=== PATIENT | female | born 1990 | race Caucasian/White ===

== ENCOUNTER 2018-11-18 11:31 | Emergency (ER) | payer OTHER ==
[~2018-11-18] VITALS: Ht 172.7 cm; Wt 91.2 kg
[~2018-11-18 11:31] MED LIST: ALBU90OI INH; ALBU90OI6 INH; ALBU90OI61 INH; AMOX500 PO; ANTOXYBENA OT; ATOM40; Ativan1 MG PO; BCP; CEPH500 PO; CETI10 PO; CETI5 PO; CYCL10 PO; CYMBALTA; Crutch1 EACH MISC; Cyclobenzaprine5 MG PO; DIPH50; DIPH50 PO; DIVA250EC; DOXY100 PO; ESTNORT; FLOURIDE; GUAI600T33 PO; HYDACE5 PO; HYDGUAL120 PO; HYDPAM25; IBUP400 PO; IBUP600 PO; IBUP800 PO; LORA.5 PO; LORA10ER PO; MECL25 PO; METF500 PO; METR500 PO; MONT10T; MULTIVITS; MULVITB&C PO; NAPR250 PO; NAPR500; NAPR500 PO; NEOPOLHYDS OT; NUVA RING; Norco 5-325 Ta1 EACH PO; Nuvaring Vagin1 EACH VG; ONDA4ODT MM; ONDA8ODT MM; OTC ALLERGY MEDS; PENVK500 PO; PRED10 PO; PRED20 PO; PROM25 PO; Prednisone20 MG PO; QUET25; RXCODGUASY PO; RXCYCL10 PO; RXHYDACE PO; RXPROM25 PO; SERT25; SULI150 PO; SUMA25 PO; TRAM50 PO; TRAZ100; TRAZ50; Zofran Odt4 MG SL; [UNRECOGNIZED DRUG - OTHER]; [UNRECOGNIZED DRUG - OTHER]; [UNRECOGNIZED DRUG - REMARK]
[2018-11-18 12:27] LABS: BASOPHILS ABSOLUTE AUTO 0.06 K/mm3 (0.00-0.23); BASOPHILS PERCENT AUTO 0 % (0-2); EOSINOPHILS ABSOLUTE AUTO 0.32 K/mm3 (0.00-0.68); EOSINOPHILS PERCENT AUTO 2 % (0-6); Hemoglobin 14.2 g/dL (11.5-16.0); IMMATURE GRAN ABSOLUTE AUTO 0.06 K/mm3 (0.00-0.10); IMMATURE GRAN PERCENT AUTO 0 % (0-1); LYMPHOCYTES ABSOLUTE AUTO 2.88 K/mm3 (0.84-5.20); LYMPHOCYTES PERCENT AUTO 20 % (21-46); MONOCYTES ABSOLUTE AUTO 0.63 K/mm3 (0.16-1.47); MONOCYTES PERCENT AUTO 4 % (4-13); Mean Corpuscular HGB 30.9 pg (26.0-34.0); Mean Corpuscular HGB Conc 33.8 g/dL (31.5-36.5); Mean Corpuscular Volume 92 fL (80-100); Mean Platelet Volume 9.4 fL (9.1-12.4); NEUTROPHILS ABSOLUTE AUTO 10.69 K/mm3 (1.96-9.15); NEUTROPHILS PERCENT AUTO 73 % (41-73); Platelet Count 337 K/mm3 (150-400); RDW Standard Deviation 40.3 fL (35.1-46.3); Red Blood Cell Count 4.59 M/mm3 (3.80-5.20); White Blood Cell Count 14.64 K/mm3 (4.00-11.30)
[2018-11-18 12:54] LABS: Alanine Aminotransfer (ALT/SGP 25 U/L (12-78); Albumin, Blood 4.3 g/dL (3.4-5.0); Albumin/Globulin Ratio 1.1 (0.8-1.8); Alk Phos 109 U/L (50-136); Anion Gap 6 mmol/L (6-16); Aspartate Aminotrans (AST/SGOT 27 U/L (12-37); Bilirubin, Total 0.4 mg/dL (0.1-1.0); Blood Urea Nitrogen 10 mg/dL (8-24); Bun/Creatinine Ratio 12.1 (12.0-20.0); CO2, Blood 25 mmol/L (21-32); Calcium, Blood 8.4 mg/dL (8.5-10.1); Chloride, Blood 107 mmol/L (98-108); Creatinine, Blood 0.82 mg/dL (0.40-1.00); Globulin, Blood 3.8 g/dL (2.2-4.0); Glomerular Filtration Rate >60 (60-); Glucose, Blood 70 mg/dL (70-99); Sodium, Blood 138 mmol/L (136-145); Total Protein, Blood 8.1 g/dL (6.4-8.2)
[2018-11-18] MEDS ORDERED: CEPH500 PO (14:55)
== END 2018-11-18 14:59 | disposition home or self-care (01) ==
LOC: ER 11:31
PROVIDERS: Physician Assistant
DX: L01.00 Impetigo, unspecified (principal); J45.909 Unspecified asthma, uncomplicated; F90.9 Attention-deficit hyperactivity disorder, unspecified type; F43.10 Post-traumatic stress disorder, unspecified; G43.909 Migraine, unspecified, not intractable, without status migrainosus; Z79.899 Other long term (current) drug therapy
CPT/HCPCS: 36415; 80053; 85025; 99283

== ENCOUNTER 2018-12-31 23:03 | Emergency (ER) | payer OTHER ==
[~2018-12-31] VITALS: Ht 167.6 cm; Wt 86.2 kg
[2018-12-31] MEDS ORDERED: FLUT1DIS2 INH (23:14)
[2018-12-31] MEDS ORDERED: DIVA250EC PO (23:15)
[2018-12-31] MEDS ORDERED: HYDHCL25 PO (23:15)
[2018-12-31] MEDS ORDERED: VENL150ER PO (23:15)
[2018-12-31] MEDS ORDERED: NAPR500 PO (23:16)
[2018-12-31] MEDS ORDERED: BACL10 PO (23:16)
[2018-12-31] MEDS ORDERED: AMIT50 PO (23:16)
[2018-12-31] MEDS ORDERED: Augmentin 875-1 EACH PO (23:56)
== END 2019-01-01 00:05 | disposition home or self-care (01) ==
LOC: ER 23:03
DX: S61.452A Open bite of left hand, initial encounter (principal); S61.451A Open bite of right hand, initial encounter; S61.552A Open bite of left wrist, initial encounter; S61.551A Open bite of right wrist, initial encounter; J45.909 Unspecified asthma, uncomplicated; F43.10 Post-traumatic stress disorder, unspecified; F90.9 Attention-deficit hyperactivity disorder, unspecified type; G43.909 Migraine, unspecified, not intractable, without status migrainosus; W55.01XA Bitten by cat, initial encounter
CPT/HCPCS: 90376; 90471; 90714; 99283-25

== ENCOUNTER 2019-04-01 22:21 | Inpatient (IN) | payer OTHER ==
[~2019-04-01] VITALS: Ht 172.7 cm; Wt 87.1 kg
[~2019-04-01 22:21] MED LIST changes: +AMIT50 PO; +Augmentin 875-1 EACH PO; +BACL10 PO; +DIVA250EC PO; +FLUT1DIS2 INH; +HYDHCL25 PO; +VENL150ER PO
[2019-04-01] MEDS ORDERED: CYCL10 PO (22:33)
[2019-04-01] MEDS ORDERED: ALLEGRA ALLERG180 MG PO (22:33)
[2019-04-01 23:42] LABS: BASOPHILS ABSOLUTE AUTO 0.06 K/mm3 (0.00-0.23); BASOPHILS PERCENT AUTO 1 % (0-2); EOSINOPHILS ABSOLUTE AUTO 0.79 K/mm3 (0.00-0.68); EOSINOPHILS PERCENT AUTO 7 % (0-6); Hematocrit 39.4 % (33.0-51.0); Hemoglobin 13.1 g/dL (11.5-16.0); IMMATURE GRAN ABSOLUTE AUTO 0.03 K/mm3 (0.00-0.10); IMMATURE GRAN PERCENT AUTO 0 % (0-1); LYMPHOCYTES ABSOLUTE AUTO 1.77 K/mm3 (0.84-5.20); LYMPHOCYTES PERCENT AUTO 16 % (21-46); MONOCYTES ABSOLUTE AUTO 0.43 K/mm3 (0.16-1.47); MONOCYTES PERCENT AUTO 4 % (4-13); Mean Corpuscular HGB 31.3 pg (26.0-34.0); Mean Corpuscular HGB Conc 33.2 g/dL (31.5-36.5); Mean Corpuscular Volume 94 fL (80-100); Mean Platelet Volume 9.4 fL (9.1-12.4); NEUTROPHILS ABSOLUTE AUTO 8.01 K/mm3 (1.96-9.15); NEUTROPHILS PERCENT AUTO 72 % (41-73); Platelet Count 266 K/mm3 (150-400); RDW Coefficient Variation 12.1 % (11.7-14.2); RDW Standard Deviation 41.9 fL (35.1-46.3); Red Blood Cell Count 4.19 M/mm3 (3.80-5.20); White Blood Cell Count 11.09 K/mm3 (4.00-11.30)
[2019-04-02 00:01] LABS: Anion Gap 7 mmol/L (6-16); Blood Urea Nitrogen 10 mg/dL (8-24); Bun/Creatinine Ratio 9.9 (12.0-20.0); CO2, Blood 25 mmol/L (21-32); Calcium, Blood 8.6 mg/dL (8.5-10.1); Chloride, Blood 108 mmol/L (98-108); Creatinine, Blood 1.01 mg/dL (0.40-1.00); Glomerular Filtration Rate >60 (60-); Glucose, Blood 125 mg/dL (70-99); Potassium, Blood 3.4 mmol/L (3.5-5.5); Sodium, Blood 140 mmol/L (136-145)
--- NOTE | 2019-04-02 04:37 | NUR ---
SHIFT SUMMARY PT ARRIVED FROM ED IN NO DISTRES. PT ON O2 2 CHANGE CONTROL MANAGER VIA NC. PT DENIES ANY SOB OR PAIN. PT CURRENTLY AWAKE TRYING TO SLEEP. NO ISSUES NOTED. CALL LIGHT IN REACH.
[2019-04-02 05:07] LABS: Hematocrit 42.5 % (33.0-51.0); Mean Corpuscular HGB 30.5 pg (26.0-34.0); Mean Corpuscular HGB Conc 32.9 g/dL (31.5-36.5); Mean Corpuscular Volume 93 fL (80-100); Mean Platelet Volume 9.5 fL (9.1-12.4); Platelet Count 298 K/mm3 (150-400); RDW Coefficient Variation 12.1 % (11.7-14.2); RDW Standard Deviation 41.5 fL (35.1-46.3); Red Blood Cell Count 4.59 M/mm3 (3.80-5.20); White Blood Cell Count 10.31 K/mm3 (4.00-11.30)
[2019-04-02 05:28] LABS: Alanine Aminotransfer (ALT/SGP 21 U/L (12-78); Albumin, Blood 4.1 g/dL (3.4-5.0); Albumin/Globulin Ratio 1.1 (0.8-1.8); Alk Phos 85 U/L (50-136); Anion Gap 8 mmol/L (6-16); Aspartate Aminotrans (AST/SGOT 22 U/L (12-37); Bilirubin, Total 0.4 mg/dL (0.1-1.0); Blood Urea Nitrogen 11 mg/dL (8-24); Bun/Creatinine Ratio 13.9 (12.0-20.0); CO2, Blood 25 mmol/L (21-32); Chloride, Blood 108 mmol/L (98-108); Creatinine, Blood 0.79 mg/dL (0.40-1.00); Globulin, Blood 3.8 g/dL (2.2-4.0); Glomerular Filtration Rate >60 (60-); Glucose, Blood 186 mg/dL (70-99); Potassium, Blood 3.9 mmol/L (3.5-5.5); Sodium, Blood 141 mmol/L (136-145); Total Protein, Blood 7.9 g/dL (6.4-8.2)
[2019-04-02 05:49] LABS: Adenovirus Not Detected (NOT DETECT)
[2019-04-02 05:50] LABS: Bordetella pertussis Not Detected (NOT DETECT); Chlamydophila pneumoniae Not Detected (NOT DETECT); Coronavirus 229E Not Detected (NOT DETECT); Coronavirus HKU1 Not Detected (NOT DETECT); Coronavirus NL63 Not Detected (NOT DETECT); Coronavirus OC43 Not Detected (NOT DETECT); Human Metapneumovirus Not Detected (NOT DETECT); Human Rhinovirus/Enterovirus Detected (NOT DETECT); Influenza A Not Detected (NOT DETECT); Influenza A/2009-H1 Not Detected (NOT DETECT); Influenza A/H1 Not Detected (NOT DETECT); Influenza A/H3 Not Detected (NOT DETECT); Influenza B Not Detected (NOT DETECT); Mycoplasma pneumoniae Not Detected (NOT DETECT); Parainfluenza Virus 1 Not Detected (NOT DETECT); Parainfluenza Virus 2 Not Detected (NOT DETECT); Parainfluenza Virus 3 Not Detected (NOT DETECT); Parainfluenza Virus 4 Not Detected (NOT DETECT); Respiratory Syncytial Virus Not Detected (NOT DETECT)
--- NOTE | 2019-04-02 18:37 | NUR ---
SHIFT SUMMARY PATIENT STATES SHE FEELS MUCH BETTER THIS AFTERNOON. TOLERATING UP TO BR AND TAKING MEAL WITH LESS SOB AT THIS TIME. OUT IN WC W/FRIENDS A FEW TIMES THIS SHIFT- PATIENT STATES 'THE COOL AIR MAKES IT EASIER TO BREATHE.' BIOX 100% ON 2L O2 PER NC WHILE SHE IS AWAITING A NEB TX. 93-94% ON RA. NO ACUTE CHANGES.
--- NOTE | 2019-04-03 04:49 | NUR ---
SHIFT SUMMARY PT HAD NO ISSUES NOTED. PT HAS GONE OUTSIDE FOR A WALK WITH FRIENDS. PT DENIES INCREASE IN SOB. PT HAS SLEPT OFF AND T/O SHIFT. PT CURRENTLY SLEEPING IN NO DISTRESS. CALL LIGHT IN REACH.
--- NOTE | 2019-04-03 12:31 | NUR ---
ADVISED PATIENT HAD SOME WATERY STOOL EARLIER AND STS SHE ATE SOMETHING YESTERDAY THAT DID NOT AGREE WITH HER. HAVE NOT SEEN SAMPLE AND DID PLACE HAT IN TOILET FOR NEXT TIME. WONERING ABOUT PROBIOTICS? STS WILL LOOK AND ORDER.
--- NOTE | 2019-04-03 15:58 | NUR ---
ALERT. ORIENTED. UNLABORED RESPIRATIONS, BUT INSPIRATORY WHEEZES. AMBULATORY WITH STEADY GAIT. INDEPENDENT. TELE ON AND HAS BEEN SR TO LOW ST. HEART RATE RISES AFTER TREATMENT AND WHEN COUGHING. DENIES PAIN. BED IN LOW POSITON. ABLE TO MAKE NEEDS KNOWN. WCTM.
--- NOTE | 2019-04-04 04:55 | NUR ---
SHIFT SUMMARY PT HAD NO ISSUES NOTED. PT DENIES ANY INCREASED SOB. PT HAD SOME ANXIETY AND WAS TX PER EMAR. PT CURRENTLY AWAKE AND BREATHING EASY. CALL LIGHT IN REACH.
[2019-04-04] MEDS ORDERED: CYCL10 PO (11:08)
[2019-04-04] MEDS ORDERED: ROBITUSSIN COU237 ML PO (11:11)
[2019-04-04] MEDS ORDERED: Florastor250 MG PO (11:11)
[2019-04-04] MEDS ORDERED: Prednisone10 MG PO (11:12)
--- NOTE | 2019-04-04 13:21 | NUR ---
1224 PT DISCHARGED HOME VIA PERSONAL VEHICLE ACCOMPANIED AND DRIVEN BY . PT TAKING TO ENTRANCE VIA W/C BY . IV REMOVED. NEW RX FAXED TO [facility] PER PT REQUEST. D/C INSTRUCTIONS REVIEWED WITH PT AND COPY PROVIDED. PT WITH VERY MILD EXPIRATORY WHEEZES THIS AM, ON RA. PT SHOWERED PRIOR TO D/C. NO NEW CHANGES OR CONCERNS.
== END 2019-04-04 12:24 | disposition home or self-care (01) | DRG 189 ==
LOC: ER 22:21 → MEDS 04-02 00:34
PROVIDERS: Emergency Medicine; ADMIT Internal Medicine
DX: J96.01 Acute respiratory failure with hypoxia (principal); N17.9 Acute kidney failure, unspecified; J45.41 Moderate persistent asthma with (acute) exacerbation; E87.6 Hypokalemia; E86.0 Dehydration
CPT/HCPCS: 0099U; 36415; 71046; 80048; 80053; 85025; 85027; 87070; 87205; 94640; 94644; 94667; 94760; 99285-25; J1650; J2920; J2930; J3475

== ENCOUNTER 2019-12-03 21:46 | Observation (INO) | payer OTHER ==
[~2019-12-03] VITALS: Ht 172.7 cm; Wt 64.5 kg
[~2019-12-03 21:46] MED LIST changes: +ALLEGRA ALLERG180 MG PO; +Florastor250 MG PO; +ONDA4ODT SL; +Prednisone10 MG PO; +ROBITUSSIN COU237 ML PO
[2019-12-03 22:25] LABS: BASOPHILS ABSOLUTE AUTO 0.04 K/mm3 (0.00-0.23); BASOPHILS PERCENT AUTO 0 % (0-2); EOSINOPHILS ABSOLUTE AUTO 0.01 K/mm3 (0.00-0.68); EOSINOPHILS PERCENT AUTO 0 % (0-6); Hematocrit 44.5 % (33.0-51.0); IMMATURE GRAN ABSOLUTE AUTO 0.04 K/mm3 (0.00-0.10); IMMATURE GRAN PERCENT AUTO 0 % (0-1); LYMPHOCYTES ABSOLUTE AUTO 2.25 K/mm3 (0.84-5.20); LYMPHOCYTES PERCENT AUTO 16 % (21-46); MONOCYTES PERCENT AUTO 4 % (4-13); Mean Corpuscular HGB 30.4 pg (26.0-34.0); Mean Corpuscular HGB Conc 33.7 g/dL (31.5-36.5); Mean Corpuscular Volume 90 fL (80-100); NEUTROPHILS ABSOLUTE AUTO 10.81 K/mm3 (1.96-9.15); NEUTROPHILS PERCENT AUTO 79 % (41-73); Platelet Count 324 K/mm3 (150-400); RDW Coefficient Variation 12.1 % (11.7-14.2); RDW Standard Deviation 40.1 fL (35.1-46.3); Red Blood Cell Count 4.94 M/mm3 (3.80-5.20); White Blood Cell Count 13.75 K/mm3 (4.00-11.30)
[2019-12-03 22:51] LABS: Alanine Aminotransfer (ALT/SGP 30 U/L (12-78); Albumin, Blood 4.4 g/dL (3.4-5.0); Albumin/Globulin Ratio 1.5 (0.8-1.8); Alk Phos 53 U/L (50-136); Anion Gap 11 mmol/L (6-16); Aspartate Aminotrans (AST/SGOT 19 U/L (12-37); Bilirubin, Total 1.3 mg/dL (0.1-1.0); Blood Urea Nitrogen 13 mg/dL (8-24); Bun/Creatinine Ratio 12.5 (12.0-20.0); CO2, Blood 26 mmol/L (21-32); Calcium, Blood 9.2 mg/dL (8.5-10.1); Chloride, Blood 103 mmol/L (98-108); Creatinine, Blood 1.04 mg/dL (0.40-1.00); Globulin, Blood 2.9 g/dL (2.2-4.0); Glomerular Filtration Rate >60 (60-); Glucose, Blood 93 mg/dL (70-99); Potassium, Blood 3.4 mmol/L (3.5-5.5); Sodium, Blood 140 mmol/L (136-145); Total Protein, Blood 7.3 g/dL (6.4-8.2)
[2019-12-03 23:20] LABS: Source, Urine Clean Catch
[2019-12-03 23:22] LABS: Bilirubin, Urine Neg (Neg); Blood, Urine 2+ (Neg); Glucose Qualitative, Urine Neg (Neg); Ketones, Urine 4+ (Neg); Leukocyte Esterase, Urine 2+ (Neg); Nitrite, Urine Neg (Neg); Protein, Urine 1+ (Neg); Specific Gravity, Urine 1.015 (1.003-1.022); Urobilinogen, Urine NORM (Normal)
[2019-12-03 23:24] LABS: Appearance, Urine Hazy (Clear); Color, Urine Yellow (P-Yellow)
[2019-12-03 23:28] LABS: Amorphous Mod (0-Heavy); Bacteria Mod /hpf; Red Blood Cells, Urine 0-2 /hpf (0-2); Squamous Epithelial Cells Few /hpf (Few)
[2019-12-04] MEDS ORDERED: MIRENA1 EACH (01:45)
--- NOTE | 2019-12-04 02:00 | NUR ---
PT ARRIVED TO ROOM FROM ER. PT A/O, CALM/COOPERATIVE; VSS. PT DENIES PAIN AT REST, REP PAIN W/PALP TO R ABD, DECLINES NEED FOR PAIN MEDS. PT REP MILD NAUSEA, REP IMPROVED AFTER MED GIVEN IN ER. BT AVTIVE, PT REP PASSIGN FLATUS, LAST BM 10 DAYS AGO. PT ORIENTED TO ROOM/CALL LIGHT. PT REQ TO SHOWER TO HELP RELIEVE ANXIETY, AGREEABLE TO WAIT UNTIL ABX COMPLETED.
--- NOTE | 2019-12-04 06:22 | NUR ---
PT NEW ADMIT THIS SHIFT FOR ACUTE TWIN. PT AWOKE W/PAIN AND NAUSEA THIS AM, MEDICATED PER EMAR. PT NPO SINCE ARRIVING TO FLOOR, PENDING OR TODAY. IVF CONT PER ORDERS. PT ANXIOUS AT TIMES, SUPPORT PRN. PT USING CALL LIGHT FOR ASSISTANCE, WILL CONT TO MONITOR UNTIL REP GIVEN TO ONCOMING RN.
--- NOTE | 2019-12-04 16:50 | NUR ---
POST OP S/P LAP TWIN. PATIENT A/O. PT REPORTS TOLERABLE PAIN AT 3/10. X4 LAP SITES TO ABD WITH SCANT SEROSANGUINOUS DRAINAGE. PT SLOWLY TOLERATING CLEAR LIQUIDS. IVF INFUSING PER ORDERS. POST OP VS STABLE W/MILD HTN. PATIENT WITH ANXIETY PREOP BUT APPEARS TO BE CALM POST OP. SUPPORT PRN. PATIENT USES CALL LIGHT APPROPRIATELY.
--- NOTE | 2019-12-04 17:00 | NUR ---
AGREE WITH HEAVY THREADER DOCUMENTATION.
--- NOTE | 2019-12-05 00:33 | NUR ---
ASSUMED CARE OF PT; REPORT REC FROM YURIDIA JAUREGUI. PT VSS, MEDICATED FOR PAIN W/TORADOL. INCISIONS CDI, APPX DIME SIZED FIRM/RAISED AREA NOTED AT UPPER INCISION. PT REP TENDERNESS W/PALP. PT AMB IN ROOM W/FWW, SCD'S PLACED, CALL LIGHT IN REACH, PT DENIES ADDITIONAL NEEDS AT THIS TIME. WILL CONT TO MONITOR AND TX PER ORDERS.
--- NOTE | 2019-12-05 05:23 | NUR ---
BP: BP ELEVATED THIS AM. PT DENIES CP/PRESSURE/SOB. REP HAVING PAIN/NAUSEA. PT DECLIINING PRN BP MED AT THIS TIME, REQ TO HAVE NAUSEA MED FOLLOWED BY PAIN MEDS THEN REASSESS BP AFTER MEDS GIVEN.
--- NOTE | 2019-12-05 06:45 | NUR ---
POD 1 S/P LAP TWIN. PT BP ELEVATED THIS AM, PRN HYDRALAZINE GIVEN PER EMAR. INCISIONS CDI, NO CHANGE IN SWELLING OF UPPER ABD SITE. PT KARLO FL PO, REP PASSING FLATUS. PT DID AWAKE W/NAUSEA THIS AM, MEDICATED W/ZOFRAN W/REP RELIEF. PT ANXIOUS AT TIMES, SUPPORT PRN. PT INDEP IN ROOM, IS CALLING FOR ASSISTANCE. WILL CONT TO MONITOR UNTIL REP GIVEN TO ONCOMING RN.
[2019-12-05] MEDS ORDERED: KEFLEX500 MG PO (16:57)
[2019-12-05] MEDS ORDERED: HYDR1TAB94 PO (16:58)
--- NOTE | 2019-12-05 17:24 | NUR ---
SUMMARY PT WITH SLIGHT NAUSEA, TAKING SMALL AMOUNTS OF REGULAR DIET. PAIN CONTROLLED WITH PO MEDS PT AMBULATING INDEPENDENTLY IN ROOM AND HALLWAYS
--- NOTE | 2019-12-05 22:24 | NUR ---
DISCHARGE NOTE PT DC'D HOME AT 2230. UPON INITIAL NURSING ASSESSMENT PT REPORTED SHE WAS FEELING MUCH BETTER, NO NAUSEA OR PAIN, TOLERATING PO INTAKE AND PASSING GAS. PT SAID SHE WANTED TO GO HOME IF POSSIBLE THIS WAS DISCUSSED EARLIER IN THE DAY. DR. BARRAZA CALLED AND CONFIRMED THAT PT WAS OKAY TO DC THIS EVENING. DC INSTRUCTIONS REVIEWED WITH PT. PT REPORTS UNDERSTANDING. SCRIPTS FOR NORCO AND KEFLEX SENT WITH PT. PT REPORTS SHE WILL FILL/POLICEMAN FIRST THING IN THE MORNING. IV DC'D WNL. PERSONAL BELONGINGS SENT WITH PT. PT REPORTS NO QUESTIONS OR CONCERNS. PT ARRANGED RIDE WITH FRIEND AND WAS ESCORTED TO VEHICLE BY INTRUSION ANALYST IN WHEELCHAIR.
== END 2019-12-05 23:00 | disposition home or self-care (01) ==
LOC: ER 21:46 → SURS 21:47
PROVIDERS: Emergency Medicine; ADMIT Surgery
PROC: 0FT44ZZ Resection of Gallbladder, Percutaneous Endoscopic Approach (ICD-10-PCS; principal; 2019-12-03)
DX: K81.1 Chronic cholecystitis (principal); F17.210 Nicotine dependence, cigarettes, uncomplicated; J45.909 Unspecified asthma, uncomplicated
CPT/HCPCS: 36415; 76705; 80053; 81001; 81025; 83690; 85025; 87077; 87086; 87186; 88304; 96361; 96365; 96366; 96375; 96376; 99285-25; A9270-GY; G0378; J0295; J0360; J0780; J1100; J1200; J1885; J2250; J2405; J2704; J2710; J3010; J7030; J7120

== ENCOUNTER 2019-12-11 15:40 | Observation (INO) | payer OTHER ==
[~2019-12-11] VITALS: Ht 172.7 cm; Wt 64.0 kg
[~2019-12-11 15:40] MED LIST changes: +HYDR1TAB94 PO; +KEFLEX500 MG PO; +MIRENA1 EACH
[2019-12-11 16:35] LABS: BASOPHILS ABSOLUTE AUTO 0.05 K/mm3 (0.00-0.23); BASOPHILS PERCENT AUTO 0 % (0-2); EOSINOPHILS ABSOLUTE AUTO 0.11 K/mm3 (0.00-0.68); EOSINOPHILS PERCENT AUTO 1 % (0-6); Hematocrit 44.6 % (33.0-51.0); Hemoglobin 14.8 g/dL (11.5-16.0); IMMATURE GRAN ABSOLUTE AUTO 0.03 K/mm3 (0.00-0.10); IMMATURE GRAN PERCENT AUTO 0 % (0-1); LYMPHOCYTES PERCENT AUTO 18 % (21-46); MONOCYTES ABSOLUTE AUTO 0.48 K/mm3 (0.16-1.47); MONOCYTES PERCENT AUTO 4 % (4-13); Mean Corpuscular HGB 29.8 pg (26.0-34.0); Mean Corpuscular HGB Conc 33.2 g/dL (31.5-36.5); Mean Corpuscular Volume 90 fL (80-100); Mean Platelet Volume 9.8 fL (9.1-12.4); NEUTROPHILS ABSOLUTE AUTO 8.62 K/mm3 (1.96-9.15); NEUTROPHILS PERCENT AUTO 76 % (41-73); Platelet Count 286 K/mm3 (150-400); RDW Standard Deviation 39.5 fL (35.1-46.3); Red Blood Cell Count 4.96 M/mm3 (3.80-5.20); White Blood Cell Count 11.29 K/mm3 (4.00-11.30)
[2019-12-11 16:51] LABS: Alanine Aminotransfer (ALT/SGP 181 U/L (12-78); Albumin, Blood 4.2 g/dL (3.4-5.0); Albumin/Globulin Ratio 1.4 (0.8-1.8); Alk Phos 56 U/L (50-136); Anion Gap 11 mmol/L (6-16); Aspartate Aminotrans (AST/SGOT 100 U/L (12-37); Bilirubin, Total 1.4 mg/dL (0.1-1.0); Blood Urea Nitrogen 12 mg/dL (8-24); Bun/Creatinine Ratio 13.6 (12.0-20.0); CO2, Blood 24 mmol/L (21-32); Calcium, Blood 9.6 mg/dL (8.5-10.1); Chloride, Blood 103 mmol/L (98-108); Creatinine, Blood 0.88 mg/dL (0.40-1.00); Glomerular Filtration Rate >60 (60-); Glucose, Blood 82 mg/dL (70-99); Potassium, Blood 3.4 mmol/L (3.5-5.5); Sodium, Blood 138 mmol/L (136-145); Total Protein, Blood 7.2 g/dL (6.4-8.2)
[2019-12-11] MEDS ORDERED: ONDA4 PO (16:56)
[2019-12-11] MEDS ORDERED: [UNRECOGNIZED DRUG - OTHER] PO (16:57)
[2019-12-11] MEDS ORDERED: PROM25 PO (18:19)
[2019-12-11] MEDS ORDERED: Daily Multiple1 EACH PO (21:17)
[2019-12-11] MEDS ORDERED: OXYC5 PO (22:29)
[2019-12-11] MEDS ORDERED: ONDA4 (22:30)
--- NOTE | 2019-12-12 07:48 | NUR ---
SUMMARY ADMITTED TO SURGICAL SERVICES S/P RECENT LAP TWIN. WILL BE SEEN BY SURGERY TODAY. ORIENTED PT TO ROOM AND CALL LIGHT SYSTEM. MED X1 IV FOR PAIN WITH VERB GOOD EFFECT.PT SLEEPING THIS AM.
[2019-12-12 08:09] LABS: BASOPHILS ABSOLUTE AUTO 0.08 K/mm3 (0.00-0.23); BASOPHILS PERCENT AUTO 1 % (0-2); EOSINOPHILS PERCENT AUTO 5 % (0-6); Hemoglobin 12.9 g/dL (11.5-16.0); IMMATURE GRAN ABSOLUTE AUTO 0.02 K/mm3 (0.00-0.10); IMMATURE GRAN PERCENT AUTO 0 % (0-1); LYMPHOCYTES ABSOLUTE AUTO 3.04 K/mm3 (0.84-5.20); LYMPHOCYTES PERCENT AUTO 33 % (21-46); MONOCYTES ABSOLUTE AUTO 0.46 K/mm3 (0.16-1.47); MONOCYTES PERCENT AUTO 5 % (4-13); Mean Corpuscular HGB 30.7 pg (26.0-34.0); Mean Corpuscular HGB Conc 33.1 g/dL (31.5-36.5); Mean Platelet Volume 9.7 fL (9.1-12.4); NEUTROPHILS ABSOLUTE AUTO 5.22 K/mm3 (1.96-9.15); NEUTROPHILS PERCENT AUTO 56 % (41-73); Platelet Count 232 K/mm3 (150-400); RDW Coefficient Variation 12.2 % (11.7-14.2); RDW Standard Deviation 41.8 fL (35.1-46.3); White Blood Cell Count 9.32 K/mm3 (4.00-11.30)
[2019-12-12 08:10] LABS: Mean Corpuscular Volume 93 fL (80-100)
[2019-12-12 08:27] LABS: Alanine Aminotransfer (ALT/SGP 165 U/L (12-78); Albumin, Blood 3.3 g/dL (3.4-5.0); Albumin/Globulin Ratio 1.3 (0.8-1.8); Alk Phos 45 U/L (50-136); Anion Gap 10 mmol/L (6-16); Aspartate Aminotrans (AST/SGOT 92 U/L (12-37); Bilirubin, Total 1.2 mg/dL (0.1-1.0); Blood Urea Nitrogen 10 mg/dL (8-24); Bun/Creatinine Ratio 11.6 (12.0-20.0); CO2, Blood 23 mmol/L (21-32); Calcium, Blood 8.3 mg/dL (8.5-10.1); Chloride, Blood 109 mmol/L (98-108); Creatinine, Blood 0.87 mg/dL (0.40-1.00); Globulin, Blood 2.6 g/dL (2.2-4.0); Glomerular Filtration Rate >60 (60-); Glucose, Blood 80 mg/dL (70-99); Potassium, Blood 3.8 mmol/L (3.5-5.5); Sodium, Blood 142 mmol/L (136-145); Total Protein, Blood 5.9 g/dL (6.4-8.2)
--- NOTE | 2019-12-12 13:29 | NUR ---
PT TAKEN TO IMAGING DEPARTMENT FOR HIDA SCAN.
--- NOTE | 2019-12-12 17:16 | NUR ---
ELEVATED BP 162/109, DR. LOMBARDI NOTIFIED. PLAN TO CONTINUE TO MONITOR BP AT THIS TIME. PT ALSO COMPLAINED OF ACID REFLUX, WILL START PROTONIX PER DR. LOMBARDI.
--- NOTE | 2019-12-12 18:04 | NUR ---
PT IS HERE FOR OBSERVATION AFTER INJURY FROM LIFTING HER DOG AFTER A RECENT LAP JOSE 8 DAYS AGO. TODAY THE HEPATOBILIARY SCAN REVEALED NO BILE LEAK OR OBSTRUCTION. PT C/O PAIN AT RIGHT ABDOMEN, STATED "HURTS WHEN I BREATHE IN." LIVER ENZYMES ARE ELEVATED. PAIN IS CONTROLLED WITH 25 MCH FENTANYL, NAUSEA IS CONTROLLED WITH PHENERGAN. PT PREFERS QUIET WITH DOOR CLOSED.
--- NOTE | 2019-12-12 18:11 | NUR ---
SHIFT SUMMARY PT WAS RE-ADMITTED AFTER A LAP TWIN SURGERY ON 11/29/2019. PT HAS HAD RUQ PAIN ACCOMPANIED BY NAUSEA T/O THE DAY. SHE HAS BEEN ABLE TO KEEP DOWN SMALL AMOUNTS OF CLEAR LIQUIDS. PT HAD A HIDA SCAN TODAY WHICH SHOWED NO BILE LEAK. PT IS INDEPENDENT IN HER ROOM. PLAN FOR CT SCAN TOMORROW. WILL CONTINUE TO MONITOR.
[2019-12-13 04:02] LABS: BASOPHILS ABSOLUTE AUTO 0.04 K/mm3 (0.00-0.23); BASOPHILS PERCENT AUTO 0 % (0-2); EOSINOPHILS ABSOLUTE AUTO 0.49 K/mm3 (0.00-0.68); EOSINOPHILS PERCENT AUTO 5 % (0-6); Hematocrit 37.7 % (33.0-51.0); Hemoglobin 12.8 g/dL (11.5-16.0); IMMATURE GRAN ABSOLUTE AUTO 0.01 K/mm3 (0.00-0.10); IMMATURE GRAN PERCENT AUTO 0 % (0-1); LYMPHOCYTES PERCENT AUTO 39 % (21-46); MONOCYTES ABSOLUTE AUTO 0.55 K/mm3 (0.16-1.47); MONOCYTES PERCENT AUTO 6 % (4-13); Mean Corpuscular HGB 30.4 pg (26.0-34.0); NEUTROPHILS ABSOLUTE AUTO 4.98 K/mm3 (1.96-9.15); NEUTROPHILS PERCENT AUTO 50 % (41-73); RDW Coefficient Variation 11.9 % (11.7-14.2); Red Blood Cell Count 4.21 M/mm3 (3.80-5.20); White Blood Cell Count 9.97 K/mm3 (4.00-11.30)
[2019-12-13 04:21] LABS: Alanine Aminotransfer (ALT/SGP 141 U/L (12-78); Albumin/Globulin Ratio 1.1 (0.8-1.8); Alk Phos 43 U/L (50-136); Anion Gap 9 mmol/L (6-16); Aspartate Aminotrans (AST/SGOT 73 U/L (12-37); Bilirubin, Total 1.2 mg/dL (0.1-1.0); Blood Urea Nitrogen 5 mg/dL (8-24); CO2, Blood 22 mmol/L (21-32); Chloride, Blood 110 mmol/L (98-108); Creatinine, Blood 0.83 mg/dL (0.40-1.00); Globulin, Blood 2.7 g/dL (2.2-4.0); Glomerular Filtration Rate >60 (60-); Glucose, Blood 79 mg/dL (70-99); Potassium, Blood 3.6 mmol/L (3.5-5.5); Sodium, Blood 141 mmol/L (136-145); Total Protein, Blood 5.7 g/dL (6.4-8.2)
[2019-12-13 04:29] LABS: Mean Corpuscular Volume 90 fL (80-100); Mean Platelet Volume 9.8 fL (9.1-12.4); Platelet Count 119 K/mm3 (150-400)
--- NOTE | 2019-12-13 05:43 | NUR ---
SHIFT SUMMARY LYING IN SEMI FOWLERS WITH EYES OPEN WHILE WATCHING TV AND DRINKING CONTRAST FOR CT DUE AT 0600. PAIN MEDS GIVEN X1 THIS SHIFT, TOLERATED WELL. DRESSINGS TO ABD C/D/I. DENIES FURTHER NEEDS OR WANTS AT THIS TIME. SAFETY MEASURES IN PLACE. WILL CONTINUE TO MONITOR AND GIVE HAND OFF TO ONCOMING SHIFT USING SBAR DURING BEDSIDE REPORT.
--- NOTE | 2019-12-13 06:49 | NUR ---
AFTER RETURNING FROM CT, NURSING WAS INFORMED THAT PT'S PIV WAS LEAKING. OLD PIV REMOVED FROM LEFT AC WITH CATH TIP INTACT, PT TOLERATED WELL. 20G PIV PLACED TO LEFT WRIST X2 ATTEPTS, FLUSHED WITH EASE BEFORE IVF RESTARTED. DENEIS FURTHER NEEDS OR WANTS AT THIS TIME. SAFETY MEASURES IN PLACE. WILL CONTINUE TO MONITOR.
--- NOTE | 2019-12-13 15:31 | NUR ---
Per admit trigger, I met with Abe to offer education regarding ACP. She was very interested in completing an Advanced Directive with her spouse post-discharge. I advised I would remain available to assist.
--- NOTE | 2019-12-13 18:04 | NUR ---
SHIFT SUMMARY ADVANCED DIET TO GLUTEN FREE. PT CONTINUED WITH PAIN BUT TOLERATABLE. SALINE LOCK DUE TO TOLERATING OF DIET.
--- NOTE | 2019-12-14 04:11 | NUR ---
SHIFT SUMMARY PT A/OX4 WITH VSS. C/O INTERMITTENT RUQ PAIN, REPORTS RELIEF FROM REPOSITIONING AND IV FENTANYL. MEDICATED 2X FOR PAIN DURING SHIFT. REPORTS ANXIETY AT TOLERABLE LEVEL. KARLO GLUTEN FREE DIET. IND IN ROOM. IS CURRENTLY RESTING IN BED WITH CALL LIGHT IN REACH. WILL CONT TO MONITOR AND GIVE REPORT TO ONCOMING RN.
--- NOTE | 2019-12-14 17:11 | NUR ---
SHIFT SUMMARY PT TOLERATING PAIN MED CHANGE WELL. TOLERATING DIET AND NO REPORTS OF NAUSEA NOR VOMITING. EATING, DRINKING AND VOIDING WELL. PASSING GAS BUT NO BM REPORTED. PT IS EXCITED TO GO HOME TOMORROW. BLOOD PRESSURE IMPROVING WITH ORDERS.
--- NOTE | 2019-12-15 05:53 | NUR ---
SHIFT SUMMARY NO ACUTE CHANGES. PT APPEARS TO HAVE RESTED WELL. REPORTS PAIN MANAGED WITH PO MEDICATION. APPEARS TO HAVE SLEPT WELL T/O OUT SHIFT. KARLO GLUTEN FREE DIET. IND IN ROOM. REPORTS VOIDING WITHOUT COMPLICATION. WILL CONT TO MONITOR AND GIVE REPORTS TO ONCOMING RN.
[2019-12-15] MEDS ORDERED: Prinivil10 MG PO (12:39)
[2019-12-15] MEDS ORDERED: TRAZ100 PO (12:41)
--- NOTE | 2019-12-15 14:17 | NUR ---
discharge Pt d/c'd. feels comfortable with DC. tolerating diet, ambulating, passing gas.
== END 2019-12-15 14:10 | disposition home or self-care (01) ==
LOC: ER 15:40 → SURS 15:41
PROVIDERS: Student in an Organized Health Care Education/Training Program; ADMIT Surgery
DX: G89.18 Other acute postprocedural pain (principal); R10.9 Unspecified abdominal pain; I10 Essential (primary) hypertension; F32.9 Major depressive disorder, single episode, unspecified; F41.9 Anxiety disorder, unspecified; Z88.1 Allergy status to other antibiotic agents; Z88.2 Allergy status to sulfonamides; Z90.49 Acquired absence of other specified parts of digestive tract
CPT/HCPCS: 36415; 74177; 78226; 80053; 82947; 83690; 83880; 84484; 85025; 93005; 93010; 96361-59; 96374-59; 96375-59; 99285-25; A9270-GY; A9537; J2270; J2405; J2543; J2550; J3010; J7030; Q9967

== ENCOUNTER 2021-02-06 16:02 | Emergency (ER) | payer OTHER ==
[~2021-02-06] VITALS: Ht 172.7 cm; Wt 62.1 kg
[~2021-02-06 16:02] MED LIST changes: +Daily Multiple1 EACH PO; +ONDA4; +ONDA4 PO; +OXYC5 PO; +Prinivil10 MG PO; +TRAZ100 PO; +[UNRECOGNIZED DRUG - OTHER] PO
[2021-02-06] MEDS ORDERED: CEPH500 PO (18:14)
== END 2021-02-06 18:30 | disposition home or self-care (01) ==
LOC: ER 16:02
DX: M27.2 Inflammatory conditions of jaws (principal); Z88.2 Allergy status to sulfonamides; Z88.1 Allergy status to other antibiotic agents; Z91.09 Other allergy status, other than to drugs and biological substances; Z91.02 Food additives allergy status; Z91.012 Allergy to eggs; Z88.8 Allergy status to other drugs, medicaments and biological substances; Z79.899 Other long term (current) drug therapy
CPT/HCPCS: 99282; A9270

== ENCOUNTER 2021-12-24 13:40 | Emergency (ER) | payer OTHER ==
[~2021-12-24] VITALS: Ht 172.7 cm; Wt 64.4 kg
== END 2021-12-24 14:45 | disposition home or self-care (01) ==
LOC: ER 13:40
DX: N93.9 Abnormal uterine and vaginal bleeding, unspecified (principal); Z88.2 Allergy status to sulfonamides; Z91.09 Other allergy status, other than to drugs and biological substances; Z91.012 Allergy to eggs; Z79.899 Other long term (current) drug therapy
CPT/HCPCS: 99283

== ENCOUNTER → 2022-02-09 | Outpatient (CLI) | payer OTHER ==
[2022-02-09 13:38] LABS: BASOPHILS ABSOLUTE AUTO 0.05 K/mm3 (0.00-0.23); BASOPHILS PERCENT AUTO 1 % (0-2); EOSINOPHILS ABSOLUTE AUTO 0.15 K/mm3 (0.00-0.68); EOSINOPHILS PERCENT AUTO 2 % (0-6); Hematocrit 40.7 % (33.0-51.0); IMMATURE GRAN ABSOLUTE AUTO 0.02 K/mm3 (0.00-0.10); IMMATURE GRAN PERCENT AUTO 0 % (0-1); LYMPHOCYTES ABSOLUTE AUTO 3.25 K/mm3 (0.84-5.20); LYMPHOCYTES PERCENT AUTO 36 % (21-46); MONOCYTES ABSOLUTE AUTO 0.41 K/mm3 (0.16-1.47); MONOCYTES PERCENT AUTO 5 % (4-13); Mean Corpuscular HGB 30.9 pg (26.0-34.0); Mean Corpuscular HGB Conc 34.4 g/dL (31.5-36.5); Mean Corpuscular Volume 90 fL (80-100); NEUTROPHILS ABSOLUTE AUTO 5.19 K/mm3 (1.96-9.15); NEUTROPHILS PERCENT AUTO 57 % (41-73); Platelet Count 280 K/mm3 (150-400); RDW Standard Deviation 43.2 fL (35.1-46.3); Red Blood Cell Count 4.53 M/mm3 (3.80-5.20); White Blood Cell Count 9.07 K/mm3 (4.00-11.30)
[2022-02-09 13:58] LABS: Albumin, Blood 3.8 g/dL (3.4-5.0); Albumin/Globulin Ratio 1.2 (0.8-1.8); Bilirubin, Total 0.4 mg/dL (0.1-1.0); Bun/Creatinine Ratio 18.4 (12.0-20.0); Calcium, Blood 8.3 mg/dL (8.5-10.1); Creatinine, Blood 0.87 mg/dL (0.40-1.00); Globulin, Blood 3.1 g/dL (2.2-4.0); Potassium, Blood 4.4 mmol/L (3.5-5.5); Thyroid Stimulating Hormone 1.661 uIU/mL (0.360-4.800); Total Protein, Blood 6.9 g/dL (6.4-8.2)
== END ==
LOC: LAB SHORT 13:34
PROVIDERS: Physician Assistant
DX: R53.83 Other fatigue (principal)
CPT/HCPCS: 80053; 84443; 85025

== ENCOUNTER 2024-01-13 20:19 | Emergency (ER) | payer OTHER ==
[~2024-01-13] VITALS: Ht 172.7 cm; Wt 63.5 kg
[2024-01-13 20:33] VITALS: BP 126/89
== END 2024-01-13 22:23 | disposition home or self-care (01) ==
LOC: ER 20:19
DX: S01.511A Laceration without foreign body of lip, initial encounter (principal); J45.909 Unspecified asthma, uncomplicated; F43.10 Post-traumatic stress disorder, unspecified; W49.04XA Ring or other jewelry causing external constriction, initial encounter; Z79.899 Other long term (current) drug therapy; Z88.2 Allergy status to sulfonamides; Z88.1 Allergy status to other antibiotic agents; Z91.018 Allergy to other foods; Z91.012 Allergy to eggs; Z91.048 Other nonmedicinal substance allergy status
CPT/HCPCS: 12011; 99282-25

== ENCOUNTER 2024-01-26 10:46 | Emergency (ER) | payer OTHER ==
[~2024-01-26] VITALS: Ht 172.7 cm; Wt 62.6 kg
[2024-01-26 11:13] VITALS: BP 124/80
[2024-01-26] MEDS ORDERED: Ondansetron HCl 2 MG / ML 2ML Vial IV ONE ×2 (11:15→12:50)
[2024-01-26] MEDS ORDERED: NS 1,000 ML IV SCH (11:15)
[2024-01-26 11:33] LABS: BASOPHILS ABSOLUTE AUTO 0.05 K/mm3 (0.00-0.23); BASOPHILS PERCENT AUTO 0 % (0-2); EOSINOPHILS PERCENT AUTO 0 % (0-6); Hematocrit 38.6 % (33.0-51.0); Hemoglobin 13.5 g/dL (11.5-16.0); IMMATURE GRAN ABSOLUTE AUTO 0.04 K/mm3 (0.00-0.10); IMMATURE GRAN PERCENT AUTO 0 % (0-1); LYMPHOCYTES ABSOLUTE AUTO 1.37 K/mm3 (0.84-5.20); LYMPHOCYTES PERCENT AUTO 8 % (21-46); MONOCYTES ABSOLUTE AUTO 0.77 K/mm3 (0.16-1.47); MONOCYTES PERCENT AUTO 5 % (4-13); Mean Corpuscular HGB 31.2 pg (26.0-34.0); Mean Corpuscular Volume 89 fL (80-100); Mean Platelet Volume 9.7 fL (9.1-12.4); NEUTROPHILS ABSOLUTE AUTO 14.72 K/mm3 (1.96-9.15); NEUTROPHILS PERCENT AUTO 87 % (41-73); Platelet Count 274 K/mm3 (150-400); RDW Coefficient Variation 12.1 % (11.7-14.2); Red Blood Cell Count 4.33 M/mm3 (3.80-5.20); White Blood Cell Count 16.95 K/mm3 (4.00-11.30)
[2024-01-26 11:52] LABS: Albumin, Blood 4.2 g/dL (3.4-5.0); Albumin/Globulin Ratio 1.3 (0.8-1.8); Bilirubin, Total 0.6 mg/dL (0.1-1.0); Bun/Creatinine Ratio 11.6 (12.0-20.0); Calcium, Blood 9.2 mg/dL (8.5-10.1); Creatinine, Blood 0.78 mg/dL (0.40-1.00); Globulin, Blood 3.2 g/dL (2.2-4.0); Potassium, Blood 3.3 mmol/L (3.5-5.5); Total Protein, Blood 7.4 g/dL (6.4-8.2)
[2024-01-26] MEDS ORDERED: PROMETHAZINE12.5 M1 PO (13:15)
[2024-01-26] MEDS ORDERED: Promethazine HCl 25 MG Tab PO ONE (13:15)
== END 2024-01-26 13:48 | disposition home or self-care (01) ==
LOC: ER 10:46
PROVIDERS: Physician Assistant
DX: A08.4 Viral intestinal infection, unspecified (principal); Z79.899 Other long term (current) drug therapy; Z88.2 Allergy status to sulfonamides; Z88.8 Allergy status to other drugs, medicaments and biological substances; Z91.09 Other allergy status, other than to drugs and biological substances; Z91.012 Allergy to eggs; Z87.891 Personal history of nicotine dependence
CPT/HCPCS: 80053; 81025; 83690; 85025; 96374; 99283-25; A9270; J2405; J7030

== ENCOUNTER 2024-08-06 18:02 | Emergency (ER) | payer OTHER ==
[~2024-08-06] VITALS: Ht 172.7 cm; Wt 64.4 kg
[~2024-08-06 18:02] MED LIST changes: +PROMETHAZINE12.5 M1 PO
[2024-08-06 18:57] VITALS: BP 145/103
[2024-08-06] MEDS ORDERED: Ondansetron HCl 2 MG / ML 2ML Vial IV PRN (19:00)
[2024-08-06 19:38] LABS: Source, Urine Clean Catch
[2024-08-06 19:42] LABS: BASOPHILS ABSOLUTE AUTO 0.07 K/mm3 (0.00-0.23); BASOPHILS PERCENT AUTO 0 % (0-2); EOSINOPHILS ABSOLUTE AUTO 0.03 K/mm3 (0.00-0.68); EOSINOPHILS PERCENT AUTO 0 % (0-6); Hematocrit 44.8 % (33.0-51.0); Hemoglobin 15.9 g/dL (11.5-16.0); IMMATURE GRAN ABSOLUTE AUTO 0.06 K/mm3 (0.00-0.10); IMMATURE GRAN PERCENT AUTO 0 % (0-1); LYMPHOCYTES ABSOLUTE AUTO 3.56 K/mm3 (0.84-5.20); LYMPHOCYTES PERCENT AUTO 19 % (21-46); MONOCYTES PERCENT AUTO 4 % (4-13); Mean Corpuscular HGB 31.5 pg (26.0-34.0); Mean Corpuscular HGB Conc 35.5 g/dL (31.5-36.5); Mean Corpuscular Volume 89 fL (80-100); Mean Platelet Volume 9.1 fL (9.1-12.4); NEUTROPHILS ABSOLUTE AUTO 13.94 K/mm3 (1.96-9.15); NEUTROPHILS PERCENT AUTO 76 % (41-73); Platelet Count 428 K/mm3 (150-400); RDW Coefficient Variation 12.6 % (11.7-14.2); RDW Standard Deviation 40.8 fL (35.1-46.3); Red Blood Cell Count 5.04 M/mm3 (3.80-5.20); White Blood Cell Count 18.36 K/mm3 (4.00-11.30)
[2024-08-06 19:54] LABS: Appearance, Urine Cloudy (Clear); Bilirubin, Urine Neg (Neg); Blood, Urine 3+ (Neg); Color, Urine Yellow (P-Yellow); Glucose Qualitative, Urine Neg (Neg); Ketones, Urine 2+ (Neg); Leukocyte Esterase, Urine 3+ (Neg); Nitrite, Urine Pos (Neg); Protein, Urine 2+ (Neg); Specific Gravity, Urine 1.025 (1.003-1.022); Urobilinogen, Urine 1+ (Normal)
[2024-08-06 20:02] LABS: Bacteria Many /hpf; Calcium Oxalate Crystals Few /hpf; Squamous Epithelial Cells Mod /hpf (Few); White Blood Cells, Urine 25-50 /hpf (0-5)
[2024-08-06 20:12] LABS: Albumin, Blood 4.7 g/dL (3.4-5.0); Albumin/Globulin Ratio 1.3 (0.8-1.8); Bun/Creatinine Ratio 13.1 (12.0-20.0); Calcium, Blood 9.7 mg/dL (8.5-10.1); Creatinine, Blood 0.84 mg/dL (0.40-1.00); Globulin, Blood 3.7 g/dL (2.2-4.0); Potassium, Blood 3.3 mmol/L (3.5-5.5); Total Protein, Blood 8.4 g/dL (6.4-8.2)
[2024-08-06] MEDS ORDERED: CefTRIAXone Sodium 1,000 MG in NS 100 ML IV ONE (22:40)
[2024-08-06] MEDS ORDERED: Amoxicillin/Clavulanate K 875 MG Tab PO ONE (23:15)
[2024-08-07] MEDS ORDERED: AMOCLA875 PO (10:41)
== END 2024-08-06 23:27 | disposition home or self-care (01) ==
LOC: ER 18:02
PROVIDERS: Student in an Organized Health Care Education/Training Program
DX: N12 Tubulo-interstitial nephritis, not specified as acute or chronic (principal); Z88.2 Allergy status to sulfonamides; Z88.8 Allergy status to other drugs, medicaments and biological substances; Z91.012 Allergy to eggs; Z91.048 Other nonmedicinal substance allergy status; Z79.899 Other long term (current) drug therapy; F43.10 Post-traumatic stress disorder, unspecified; G43.909 Migraine, unspecified, not intractable, without status migrainosus; Z87.891 Personal history of nicotine dependence
CPT/HCPCS: 80053; 81001; 81025; 83690; 85025; 87077; 87086; 87186; 96374; 96375; 99283-25; A9270; J0696; J2405

== ENCOUNTER 2025-05-06 12:14 | Emergency (ER) | payer OTHER ==
[~2025-05-06] VITALS: Ht 172.7 cm; Wt 76.2 kg
[~2025-05-06 12:14] MED LIST changes: +AMOCLA875 PO
[2025-05-06] MEDS ORDERED: NS 1,000 ML IV SCH (12:30)
[2025-05-06 13:18] LABS: Source, Urine Clean Catch
[2025-05-06 13:20] LABS: Color, Urine Yellow (P-Yellow); Glucose Qualitative, Urine Neg (Neg); Ketones, Urine 4+ (Neg); Leukocyte Esterase, Urine 3+ (Neg); Protein, Urine 2+ (Neg); Specific Gravity, Urine 1.020 (1.003-1.022); Urobilinogen, Urine 3+ (Normal)
[2025-05-06 13:28] LABS: BASOPHILS ABSOLUTE AUTO 0.01 K/mm3 (0.00-0.23); BASOPHILS PERCENT AUTO 0 % (0-2); EOSINOPHILS ABSOLUTE AUTO 0.01 K/mm3 (0.00-0.68); EOSINOPHILS PERCENT AUTO 0 % (0-6); Hematocrit 33.3 % (33.0-51.0); Hemoglobin 11.6 g/dL (11.5-16.0); IMMATURE GRAN ABSOLUTE AUTO 0.05 K/mm3 (0.00-0.10); IMMATURE GRAN PERCENT AUTO 0 % (0-1); LYMPHOCYTES ABSOLUTE AUTO 1.87 K/mm3 (0.84-5.20); LYMPHOCYTES PERCENT AUTO 12 % (21-46); MONOCYTES ABSOLUTE AUTO 0.70 K/mm3 (0.16-1.47); MONOCYTES PERCENT AUTO 5 % (4-13); Mean Corpuscular HGB Conc 34.8 g/dL (31.5-36.5); Mean Corpuscular Volume 93 fL (80-100); NEUTROPHILS ABSOLUTE AUTO 12.41 K/mm3 (1.96-9.15); NEUTROPHILS PERCENT AUTO 82 % (41-73); NRBC ABSOLUTE 0.00 K/mm3 (0.00-0.02); NRBC Auto 0.0 /100 WBC (0.0-0.2); Platelet Count 292 K/mm3 (150-400); RDW Coefficient Variation 12.0 % (11.7-14.2); RDW Standard Deviation 41.4 fL (35.1-46.3)
[2025-05-06 13:34] LABS: Bilirubin, Urine 1+ (Neg); White Blood Cells, Urine TNTC /hpf (0-5)
[2025-05-06 13:39] LABS: Alanine Aminotransfer (ALT/SGP 54.0 U/L (12-78); Albumin, Blood 3.4 g/dL (3.4-5.0); Albumin/Globulin Ratio 0.8 (0.8-1.8); Anion Gap 9.0 mmol/L (3-11); Aspartate Aminotrans (AST/SGOT 44.0 U/L (12-37); Bilirubin, Total 0.9 mg/dL (0.1-1.0); Blood Urea Nitrogen 12.0 mg/dL (8-24); CO2, Blood 24.0 mmol/L (21-32); Calcium, Blood 9.1 mg/dL (8.5-10.1); Chloride, Blood 104.0 mmol/L (98-108); Creatinine, Blood 0.62 mg/dL (0.40-1.00); Globulin, Blood 4.1 g/dL (2.2-4.0); Glucose, Blood 92.0 mg/dL (70-99); Potassium, Blood 3.0 mmol/L (3.5-5.5); Sodium, Blood 134.0 mmol/L (136-145); Total Protein, Blood 7.5 g/dL (6.4-8.2)
[2025-05-06] MEDS ORDERED: CefTRIAXone Sodium 1,000 MG in NS 100 ML IV ONE (14:00)
[2025-05-06] MEDS ORDERED: Ondansetron HCl 2 MG / ML 2ML Vial IV ONE (14:00)
[2025-05-06] MEDS ORDERED: K-TAB ER20 MEQ PO (15:57)
[2025-05-06 16:06] VITALS: BP 132/71
== END 2025-05-06 16:07 | disposition home or self-care (01) ==
LOC: ER 12:14
PROVIDERS: Physician Assistant
DX: O23.42 Unspecified infection of urinary tract in pregnancy, second trimester (principal); O99.282 Endocrine, nutritional and metabolic diseases complicating pregnancy, second trimester; O21.0 Mild hyperemesis gravidarum; N39.0 Urinary tract infection, site not specified; E86.0 Dehydration; Z3A.27 27 weeks gestation of pregnancy; Z59.89 Other problems related to housing and economic circumstances; E11.9 Type 2 diabetes mellitus without complications; Z88.2 Allergy status to sulfonamides; Z91.0120 Allergy to eggs, unspecified; Z88.1 Allergy status to other antibiotic agents; Z79.899 Other long term (current) drug therapy
CPT/HCPCS: 36415; 80053; 81001; 85025; 87077; 87086; 87186; 96361; 96365; 96375; 99283-25; A9270; J0696; J2405; J7030